=== PATIENT | female | born 1970 | race Two or more races ===

== ENCOUNTER 2017-06-30 10:35 | Emergency (ER) | payer BC, OTHER ==
[~2017-06-30] VITALS: Ht 160 cm; Wt 74.8 kg
--- NOTE | 2017-06-30 11:20 | NUR ---
TO ED DT DIZZINESS AND NAUSEA. APPEARS IN NO APPARENT DISTRESS,. RESPIRATION EVEN AND UNLABORED. SKIN IS WARM TO TOUCH AND NON DIAPHORETIC. PATIENT IS AFEBRILE.VSS
[2017-06-30] MEDS ORDERED: MECLIZINE HCL 12.5 MG TABLET PO ONE (12:30)
[2017-06-30] MEDS ORDERED: ONDANSETRON 4 MG TAB.RAPDIS SL ONE (12:30)
[2017-06-30 12:35] LABS: APPEARANCE,URINE Clear (CLEAR); BILIRUBIN,URINE Negative (NEGATIVE); BLOOD, URINE Negative Ery/uL (NEGATIVE); COLOR,URINE Yellow (YELLOW); KETONES,URINE Negative (NEGATIVE); LEUKOCYTE ESTERASE ,URINE Trace (NEGATIVE); NITRITE, URINE Negative (NEGATIVE); PH,URINE 7.5 (5.0-8.0); PREGNANCY TEST URINE QUAL NEGATIVE (NEGATIVE); PROTEIN,URINE Negative (NEGATIVE); UGLUCOSE Negative (NEGATIVE); UROBILINOGEN,URINE 0.2 EU/dL (0.2)
[2017-06-30 12:36] LABS: BACTERIA,URINE Rare /HPF (None Seen); RBC,URINE 0-2 /HPF (0-2); SQUAMOUS EPITHELIAL CELL,UR Few /HPF (None Seen); WBC,URINE 0-2 /HPF (0-3)
[2017-06-30] MEDS ORDERED: ONDANSETRON 4 MG TAB.RAPDIS ONE (12:39)
[2017-06-30] MEDS ORDERED: MECLIZINE HCL 25 MG TABLET ONE (12:39)
[2017-06-30 13:09] VITALS: BP 113/60
--- NOTE | 2017-06-30 13:09 | NUR ---
Patient discharged to home in stable condition. Written and verbal after care instructions given. Patient verbalizes understanding of instruction.
== END 2017-06-30 13:10 | disposition home or self-care (01) ==
LOC: ER 10:41
DX: R42 Dizziness and giddiness (principal); R11.0 Nausea; M32.9 Systemic lupus erythematosus, unspecified; Z90.89 Acquired absence of other organs
CPT/HCPCS: 81000-TC; 84703-TC; A4606; Z7610

== ENCOUNTER 2018-07-20 18:34 | Emergency (ER) | payer BC ==
[~2018-07-20] VITALS: Ht 160 cm; Wt 81.6 kg
[2018-07-20] MEDS ORDERED: KETOROLAC TROMETHAMINE INJ 30 MG/ML VIAL IM ONE (19:30)
[2018-07-20] MEDS ORDERED: KETOROLAC TROMETHAMINE INJ 30 MG/ML VIAL ONE (19:30)
--- NOTE | 2018-07-20 19:42 | NUR ---
PT PRESENTS TO ER C/O LOWER BACK PAIN WHICH IS CONTINUOUS AND WORSENS WITH MOVEMENT, SINCE THURSDAY. DENIES N/V/D, HEAMTURIA, DYSURIA. SKIN WARM DRY. RESP EVEN UNLABORED. ABLE TO AMBULATE WITH STEADY GAIT, THOUGH IT CAUSES PAIN.
[2018-07-20] MEDS ORDERED: ONDANSETRON 4 MG TAB.RAPDIS SL ONE (20:30)
[2018-07-20] MEDS ORDERED: oxyCODONE/APAP (5/325 MG) 1 UDTAB TABLET PO ONE (20:30)
[2018-07-20] MEDS ORDERED: ONDANSETRON 4 MG TAB.RAPDIS ONE (20:43)
[2018-07-20] MEDS ORDERED: oxyCODONE/APAP (5/325 MG) 1 UDTAB TABLET ONE (20:43)
--- NOTE | 2018-07-20 20:56 | NUR ---
RESTING QUIETLY HOWEVER PAIN PERSISTS. MEDICATED PER ORDER.
--- NOTE | 2018-07-20 21:26 | NUR ---
PT NOW ABLE TO AMBULATE, IN RESTROOM TO PROVIDE URINE SAMPLE
[2018-07-20 21:39] LABS: APPEARANCE,URINE Slightly Cloudy (CLEAR); BILIRUBIN,URINE Negative (NEGATIVE); BLOOD, URINE Trace-lysed Ery/uL (NEGATIVE); COLOR,URINE Yellow (YELLOW); KETONES,URINE Negative (NEGATIVE); LEUKOCYTE ESTERASE ,URINE Negative (NEGATIVE); NITRITE, URINE Negative (NEGATIVE); PROTEIN,URINE Negative (NEGATIVE); UGLUCOSE Negative (NEGATIVE)
--- NOTE | 2018-07-20 21:48 | NUR ---
Patient discharged to home in stable condition after re-eval by COORDINATOR [employer]. Denies any new or worsening sx's at this time. Resp even and unlabored. Written and verbal after care instructions given. Patient verbalizes understanding of instruction. Ambulatory with a steady gait accompanied by family.
[2018-07-20 21:50] VITALS: BP 132/85
[2018-07-20 21:51] LABS: BACTERIA,URINE Moderate /HPF (None Seen); SQUAMOUS EPITHELIAL CELL,UR Moderate /HPF (None Seen)
[2018-07-20 21:52] LABS: RBC,URINE 0-2 /HPF (0-2); URINE AMORPHOUS URATE Moderate /HPF (None Seen); WBC,URINE 0-2 /HPF (0-3)
== END 2018-07-20 21:51 | disposition home or self-care (01) ==
LOC: ER 18:37
DX: S39.012A Strain of muscle, fascia and tendon of lower back, initial encounter (principal); M32.9 Systemic lupus erythematosus, unspecified; Z90.49 Acquired absence of other specified parts of digestive tract; X58.XXXA Exposure to other specified factors, initial encounter; Y93.89 Activity, other specified; Y92.89 Other specified places as the place of occurrence of the external cause; Y99.8 Other external cause status
CPT/HCPCS: 72100-TC; 81000-TC; 87086-TC; A4606; J1885; Q0162; Z7610

== ENCOUNTER 2019-10-07 00:08 | Emergency (ER) | payer BC ==
[~2019-10-07] VITALS: Ht 160 cm; Wt 61.2 kg
--- NOTE | 2019-10-07 00:25 | NUR ---
PT PRESENTED TO THE ER WITH A C/O ABD PAIN WITH N/V SINCE 1500 YESTERDAY. PT IS HOLDING HER STOMACH AND GROANING. PT WAS PLACED ON THE MONITOR AND CONTINUOUS PULSE OX.
[2019-10-07] MEDS ORDERED: MORPHINE SULFATE INJ 2 MG/ML DISP.SYRIN IV ONE (00:30)
[2019-10-07] MEDS ORDERED: ONDANSETRON HCL/PF 4 MG/2 ML VIAL IVP ONE (00:30)
[2019-10-07] MEDS ORDERED: IV NS 0.9% 1,000 ML BAG IV ONE (00:30)
--- NOTE | 2019-10-07 00:35 | NUR ---
IV STARTED AND BLOOD WAS DRAWN. LOUIE, CHANGEOVER OPERATOR IS AT THE BEDSIDE FOR DRAW.
[2019-10-07 00:40] LABS: APPEARANCE,URINE Clear (CLEAR); BILIRUBIN,URINE Negative (NEGATIVE); BLOOD, URINE Small Ery/uL (NEGATIVE); COLOR,URINE Yellow (YELLOW); KETONES,URINE 40 (NEGATIVE); LEUKOCYTE ESTERASE ,URINE Negative (NEGATIVE); NITRITE, URINE Negative (NEGATIVE); PH,URINE 5.5 (5.0-8.0); PROTEIN,URINE Negative (NEGATIVE); UGLUCOSE Negative (NEGATIVE); UROBILINOGEN,URINE 0.2 EU/dL (0.2)
[2019-10-07 00:41] LABS: BASOPHILS # (AUTO) 0.1 /CMM (0.0-0.2); BASOPHILS % (AUTO) 0.8 % (0.0-2.0); EOSINOPHILS % (AUTO) 0.8 % (0.0-6.0); HEMATOCRIT 36 % (33-45); HEMOGLOBIN 12.7 g/dL (11.5-14.8); LYMPHOCYTES # (AUTO) 1.6 /CMM (0.8-4.8); LYMPHOCYTES % (AUTO) 19.3 % (20.0-44.0); MEAN CORPUSCULAR HGB CONC 35 g/dl (31.0-36.0); MEAN CORPUSCULAR VOLUME 84 fL (82-100); MONOCYTES # (AUTO) 0.4 /CMM (0.1-1.30); MONOCYTES % (AUTO) 4.5 % (2.0-12.0); NEUTROPHILS % (AUTO) 74.6 % (43.0-81.0); PLATELET COUNT (AUTO) 233 /CMM (150-450); RED BLOOD CELL COUNT(AUTO) 4.34 MIL/uL (4.0-5.2); WHITE BLOOD COUNT (AUTO) 8.1 K/uL (4.3-11.0)
[2019-10-07] MEDS ORDERED: ONDANSETRON HCL/PF 4 MG/2 ML VIAL ONE (00:42)
[2019-10-07] MEDS ORDERED: MORPHINE SULFATE INJ 4 MG/ML DISP.SYRIN ONE (00:43)
[2019-10-07 00:54] LABS: CALCIUM, SERUM 8.9 mg/dL (8.5-10.1); CARBON DIOXIDE 21 mmol/L (21-32); CHLORIDE 100 mmol/L (98-107); CREATININE 0.6 mg/dL (0.6-1.3); GLUCOSE 130 mg/dL (74-106); POTASSIUM 3.8 mmol/L (3.5-5.1); SODIUM SERUM 134 mmol/L (136-145); UREA NITROGEN, BLOOD 10 mg/dL (7-18)
--- NOTE | 2019-10-07 00:55 | NUR ---
PT BROUGHT TO CT
[2019-10-07 01:00] LABS: ALANINE AMINOTRANSFERASE 38 U/L (12-78); ALBUMIN 3.6 g/dL (3.4-5.0); ALKALINE PHOSPHATASE 64 U/L (46-116); ASPARTATE AMINOTRANSFERASE 24 U/L (15-37); BILIRUBIN,DIRECT 0.1 mg/dL (0.0-0.2); BILIRUBIN,TOTAL 0.6 mg/dL (0.2-1.0); LIPASE 102 U/L (73-393); TOTAL PROTEIN, SERUM 7.2 g/dL (6.4-8.2)
--- NOTE | 2019-10-07 01:02 | NUR ---
PT RETURNED FROM CT.
[2019-10-07 01:19] LABS: BACTERIA,URINE None seen /HPF (None Seen); MUCUS,URINE Few /LPF (None Seen); SQUAMOUS EPITHELIAL CELL,UR Few /HPF (None Seen); WBC,URINE 0-2 /HPF (0-3)
--- NOTE | 2019-10-07 01:19 | NUR ---
PT APPEARS TO BE RESTING COMFORTABLY. PT STATED THAT SHE HAS EPIGASTRIC PAIN 4/10. PT HAD A CHOLECYSTECTOMY IN THE PAST AND HAS BEEN DX WITH GERD. PT CONTROLS THE GERD WITH HER DIET.
[2019-10-07] MEDS ORDERED: FAMOTIDINE/PF INJ 20 MG/2 ML VIAL IV ONE ×2 (01:25→01:30)
[2019-10-07] MEDS ORDERED: MAG HYDROX/AL HYDROX/SIMETH 30 ML UDC ONE (01:25)
[2019-10-07] MEDS ORDERED: LIDOCAINE VISCOUS 2% UD 15 ML UDC ONE (01:25)
[2019-10-07] MEDS ORDERED: MAG HYDROX/AL HYDROX/SIMETH 30 ML UDC PO ONE (01:30)
[2019-10-07] MEDS ORDERED: LIDOCAINE VISCOUS 2% UD 15 ML UDC MM ONE (01:30)
--- NOTE | 2019-10-07 02:20 | NUR ---
PT IS C/O 10/10 ABD PAIN THAT RADIATES TO THE NECK. PT IS ALSO C/O BACK PAIN. PT IS ON THE MONITOR AND CONTINUOUS PULSE OX. NOTIFIED.
[2019-10-07] MEDS ORDERED: DICYCLOMINE HCL INJ 20 MG/2 ML AMPUL IM ONE ×2 (02:25→02:30)
--- NOTE | 2019-10-07 02:26 | NUR ---
PT REC'D MEDICATION ORDERED.
--- NOTE | 2019-10-07 02:48 | NUR ---
PT STATED THAT HER PAIN IS STILL THERE AND IT''S 06/01 NOW.
--- NOTE | 2019-10-07 03:01 | NUR ---
PT DOES NOT WANT HE BLOOD PRESSURE TAKEN BECAUSE SHE HAS LUPUS AND WHEN THE CUFF INFLATES, IT HURTS HER ARM.
--- NOTE | 2019-10-07 03:04 | NUR ---
PT APPEARS TO BE SLEEPING COMFORTABLY WITH NO S/S OF PAIN OR DISTRESS.
--- NOTE | 2019-10-07 03:15 | NUR ---
IV removed. Catheter intact and site benign. Pressure and 4x4 applied to site. No bleeding noted.
--- NOTE | 2019-10-07 03:26 | NUR ---
Patient discharged to home in stable condition. Written and verbal after care instructions given. Patient verbalizes understanding of instruction. PT TO TAKE AN UBER HOME. VSS. PT STATED THAT HER PAIN IS STILL THERE A LITTLE BIT, BUT IS MUCH BETTER. PT AMBULATED OUT WITH A STEADY GAIT.
[2019-10-07 03:27] VITALS: BP 142/68
== END 2019-10-07 03:28 | disposition home or self-care (01) ==
LOC: ER 00:08
DX: R10.12 Left upper quadrant pain (principal); R10.11 Right upper quadrant pain; R19.7 Diarrhea, unspecified; Z90.49 Acquired absence of other specified parts of digestive tract
CPT/HCPCS: 36415; 71045; 74176; 80048; 80076; 81001; 83690; 84484; 85025; 85730; 93005; 96361; 96372; 96374; 96375; 99284; J0500; J2270; J2405; J3490; J7030; 81000-TC

== ENCOUNTER 2021-03-03 18:08 | Emergency (ER) | payer BC ==
[~2021-03-03] VITALS: Ht 160 cm; Wt 71.7 kg
[2021-03-03 18:30] VITALS: BP 145/74
[2021-03-03] MEDS ORDERED: OXYC-128 PO (18:39)
[2021-03-03] MEDS ORDERED: PENI500T PO (18:39)
== END 2021-03-03 18:47 | disposition home or self-care (01) ==
LOC: ER 18:12
DX: K08.89 Other specified disorders of teeth and supporting structures (principal); K04.7 Periapical abscess without sinus; M32.9 Systemic lupus erythematosus, unspecified; Z90.49 Acquired absence of other specified parts of digestive tract; Z79.899 Other long term (current) drug therapy

== ENCOUNTER 2023-09-21 22:13 | Emergency (ER) | payer BC ==
[~2023-09-21] VITALS: Ht 160 cm; Wt 63.5 kg
[~2023-09-21 22:13] MED LIST: OXYC-128 PO; PENI500T PO
[2023-09-21 22:54] VITALS: BP 116/79; TEMP 98.6; O2SAT 97
[2023-09-22] MEDS ORDERED: IV NS 0.9% 1,000 ML IV ONE
[2023-09-22] MEDS ORDERED: MORPHINE SULFATE INJ 2 MG/ML DISP.SYRIN IV ONE
[2023-09-22] MEDS ORDERED: ONDANSETRON HCL/PF 4 MG/2 ML VIAL IVP ONE
[2023-09-22] MEDS ORDERED: ONDANSETRON HCL/PF 4 MG/2 ML VIAL ONE (00:08)
[2023-09-22] MEDS ORDERED: MORPHINE SULFATE INJ 2 MG/ML DISP.SYRIN ONE (00:09)
[2023-09-22] MEDS ORDERED: IV NS 0.9% 1,000 ML BAG IV ONE (00:30)
[2023-09-22 00:42] LABS: BASOPHILS # (AUTO) 0.1 K/uL (0.0-0.2); EOSINOPHILS # (AUTO) 0.1 K/uL (0.0-0.7); EOSINOPHILS % (AUTO) 1.9 % (0.0-6.0); HEMATOCRIT 37 % (33-45); HEMOGLOBIN 12.3 g/dL (11.5-14.8); LYMPHOCYTES # (AUTO) 1.8 K/uL (0.8-4.8); LYMPHOCYTES % (AUTO) 32.2 % (20.0-44.0); MEAN CORPUSCULAR HEMOGLOBIN 28 PG (26.0-33.0); MEAN CORPUSCULAR HGB CONC 33 g/dl (31.0-36.0); MEAN CORPUSCULAR VOLUME 86 fL (82-100); MONOCYTES # (AUTO) 0.3 K/uL (0.1-1.30); NEUTROPHILS # (AUTO) 3.4 K/uL (1.8-8.9); NEUTROPHILS % (AUTO) 59.9 % (43.0-81.0); PLATELET COUNT (AUTO) 248 K/uL (150-450); RED BLOOD CELL COUNT(AUTO) 4.33 MIL/uL (4.0-5.2); RED CELL DISTRIBUTION WIDTH 14.2 % (11.5-15.0); WHITE BLOOD COUNT (AUTO) 5.7 K/uL (4.3-11.0)
[2023-09-22 01:44] LABS: ALBUMIN 4.1 g/dL (3.4-5.0); BILIRUBIN,DIRECT 0.1 mg/dL (0.0-0.2); BILIRUBIN,TOTAL 0.5 mg/dL (0.2-1.0); CALCIUM, SERUM 9.3 mg/dL (8.5-10.1); CREATININE 0.6 mg/dL (0.6-1.3); POTASSIUM 3.9 mmol/L (3.5-5.1); TOTAL PROTEIN, SERUM 7.8 g/dL (6.4-8.2)
[2023-09-22 02:38] LABS: EOSINOPHILS % (MANUAL) 4 % (0-4); LYMPHOCYTES % (MANUAL) 38 % (16-48); MONOCYTES % (MANUAL) 5 % (0-11.0); NEUTROPHILS % (MANUAL) 53 (42-76); PLATELET ESTIMATE ADEQUATE
[2023-09-22] MEDS ORDERED: PIPERACI/TAZO 3.375GM/D5W 50ML PB IV ONE (03:15)
[2023-09-22] MEDS ORDERED: PIPERACILLIN /TAZOBACTAM 3.375 G in IV D5W 50 ML IV ONE (03:30)
== END 2023-09-22 07:47 | disposition short-term general hospital (02) ==
LOC: ER 22:16
DX: K35.80 Unspecified acute appendicitis (principal); R10.31 Right lower quadrant pain; Z90.49 Acquired absence of other specified parts of digestive tract
CPT/HCPCS: 99285; 74177; 36415; 96365; 96375; 96361; 85025; 80048; 83690; 80076; 85007; J7050; Q9967; J2405; J2543 ×2; J7060; J7030 ×2; J2270

== ENCOUNTER 2024-07-28 10:38 | Emergency (ER) | payer BC ==
[~2024-07-28] VITALS: Ht 160 cm; Wt 62.1 kg
[2024-07-28] MEDS ORDERED: METOCLOPRAMIDE HCL 10 MG/2 ML VIAL ONE (11:22)
[2024-07-28] MEDS ORDERED: ACETAMINOPHEN 325 MG TABLET ONE (11:22)
[2024-07-28] MEDS ORDERED: diphenhydrAMINE HCL 50 MG/ML VIAL ONE (11:22)
[2024-07-28 11:51] LABS: BASOPHILS % (AUTO) 0.5 % (0.0-2.0); EOSINOPHILS # (AUTO) 0.1 K/uL (0.0-0.7); EOSINOPHILS % (AUTO) 2.2 % (0.0-6.0); HEMATOCRIT 34 % (33-45); HEMOGLOBIN 11.3 g/dL (11.5-14.8); LYMPHOCYTES # (AUTO) 1.4 K/uL (0.8-4.8); LYMPHOCYTES % (AUTO) 33.2 % (20.0-44.0); MEAN CORPUSCULAR HEMOGLOBIN 29 PG (26.0-33.0); MEAN CORPUSCULAR HGB CONC 33 g/dl (31.0-36.0); MEAN CORPUSCULAR VOLUME 87 fL (82-100); MONOCYTES # (AUTO) 0.3 K/uL (0.1-1.30); MONOCYTES % (AUTO) 6.4 % (2.0-12.0); NEUTROPHILS # (AUTO) 2.4 K/uL (1.8-8.9); NEUTROPHILS % (AUTO) 57.7 % (43.0-81.0); PLATELET COUNT (AUTO) 208 K/uL (150-450); RED BLOOD CELL COUNT(AUTO) 3.91 MIL/uL (4.0-5.2); RED CELL DISTRIBUTION WIDTH 13.6 % (11.5-15.0); WHITE BLOOD COUNT (AUTO) 4.2 K/uL (4.3-11.0)
[2024-07-28] MEDS: IV NS 0.9% 1,000 ML BAG IV ONE (11:52)
[2024-07-28] MEDS: ACETAMINOPHEN 325 MG TABLET PO ONE (11:53)
[2024-07-28] MEDS: METOCLOPRAMIDE HCL 10 MG/2 ML VIAL IV ONE (11:54)
[2024-07-28] MEDS: diphenhydrAMINE HCL 50 MG/ML VIAL IV ONE (11:54)
[2024-07-28 12:13] LABS: ALANINE AMINOTRANSFERASE 14 U/L (12-78); ALBUMIN 3.5 g/dL (3.4-5.0); ALKALINE PHOSPHATASE 53 U/L (46-116); ASPARTATE AMINOTRANSFERASE 8 U/L (15-37); BILIRUBIN,DIRECT 0.1 mg/dL (0.0-0.2); BILIRUBIN,TOTAL 0.6 mg/dL (0.2-1.0); CARBON DIOXIDE 27 mmol/L (21-32); CHLORIDE 105 mmol/L (98-107); CREATININE 0.7 mg/dL (0.6-1.3); GLUCOSE 83 mg/dL (74-106); SODIUM SERUM 138 mmol/L (136-145); TOTAL PROTEIN, SERUM 6.8 g/dL (6.4-8.2); UREA NITROGEN, BLOOD 15 mg/dL (7-18)
[2024-07-28 15:29] VITALS: BP 106/50; TEMP 98.2; O2SAT 99
== END 2024-07-28 15:31 | disposition home or self-care (01) ==
LOC: ER 10:42
DX: R51.9 Headache, unspecified (principal); R42 Dizziness and giddiness; R11.0 Nausea; J02.9 Acute pharyngitis, unspecified; E78.5 Hyperlipidemia, unspecified; M79.7 Fibromyalgia; Z90.49 Acquired absence of other specified parts of digestive tract; Z20.822 Contact with and (suspected) exposure to COVID-19
CPT/HCPCS: 99285; 96374; 70450; 96361; 96375; 87426; 93005; 87804 ×2; 85025; 80048; 80076; 36415; 84484; J1200; J2765; J7030

== ENCOUNTER 2024-09-06 07:19 | Emergency (ER) | payer BC, MEDICAID ==
[~2024-09-06] VITALS: Ht 160 cm; Wt 61.2 kg
[2024-09-06] MEDS ORDERED: CEPH-570 PO (07:55)
[2024-09-06] MEDS ORDERED: FLUC150T PO (07:55)
[2024-09-06 08:21] LABS: BILIRUBIN,URINE 1+ (NEGATIVE); BLOOD, URINE 3+ Ery/uL (NEGATIVE); COLOR,URINE YELLOW (YELLOW); KETONES,URINE NEGATIVE (NEGATIVE); LEUKOCYTE ESTERASE ,URINE 2+ (NEGATIVE); NITRITE, URINE NEGATIVE (NEGATIVE); PH,URINE 5.5 (5.0-8.0); PROTEIN,URINE 2+ mg/dl (NEGATIVE); UGLUCOSE NEGATIVE (NEGATIVE); UROBILINOGEN,URINE 0.2 EU/dL (0.2)
[2024-09-06 08:22] LABS: APPEARANCE,URINE CLOUDY (CLEAR)
[2024-09-06 08:32] VITALS: BP 116/80; TEMP 98.3; O2SAT 100
[2024-09-06 08:33] LABS: ADD URINE CULTURE YES; BACTERIA,URINE Few /HPF (None Seen); RBC,URINE 51-80 /HPF (0-2); WBC,URINE 21-50 /HPF (0-3)
== END 2024-09-06 08:37 | disposition home or self-care (01) ==
LOC: ER 07:23
DX: N39.0 Urinary tract infection, site not specified (principal); Z90.49 Acquired absence of other specified parts of digestive tract; Z98.890 Other specified postprocedural states
CPT/HCPCS: 81001; 87086-TC

== ENCOUNTER 2025-03-03 01:48 | Emergency (ER) | payer BC ==
[~2025-03-03] VITALS: Ht 160 cm; Wt 63.0 kg
[~2025-03-03 01:48] MED LIST changes: +CEPH-570 PO; +FLUC150T PO
[2025-03-03] MEDS ORDERED: IBUPROFEN 400 MG TABLET ONE (02:48)
[2025-03-03 02:51] LABS: APPEARANCE,URINE TURBID (CLEAR); BILIRUBIN,URINE NEGATIVE (NEGATIVE); BLOOD, URINE 2+ Ery/uL (NEGATIVE); COLOR,URINE DARK YELLOW (YELLOW); KETONES,URINE NEGATIVE (NEGATIVE); LEUKOCYTE ESTERASE ,URINE 3+ (NEGATIVE); NITRITE, URINE POSITIVE (NEGATIVE); PREGNANCY TEST URINE QUAL NEGATIVE (NEGATIVE); PROTEIN,URINE 2+ mg/dl (NEGATIVE); UGLUCOSE NEGATIVE (NEGATIVE)
[2025-03-03 02:52] LABS: ADD URINE CULTURE YES; BACTERIA,URINE Moderate /HPF (None Seen); SQUAMOUS EPITHELIAL CELL,UR Rare /HPF (None Seen); WBC,URINE 51-80 /HPF (0-3)
[2025-03-03] MEDS ORDERED: NITR100C6 PO (03:04)
[2025-03-03] MEDS ORDERED: FLUC150T PO (03:04)
[2025-03-03] MEDS ORDERED: NITROFURANTOIN/MONOHYDRATE MACROCRYSTALS 100 MG CAPSULE ONE (03:08)
[2025-03-03] MEDS: IBUPROFEN 400 MG TABLET PO ONE (03:08)
[2025-03-03] MEDS: NITROFURANTOIN/MONOHYDRATE MACROCRYSTALS 100 MG CAPSULE PO ONE (03:09)
[2025-03-03 03:20] VITALS: BP 116/67; TEMP 98.2; O2SAT 99
== END 2025-03-03 03:21 | disposition home or self-care (01) ==
LOC: ER 01:53
DX: N39.0 Urinary tract infection, site not specified (principal); M79.7 Fibromyalgia; Z90.49 Acquired absence of other specified parts of digestive tract
CPT/HCPCS: 81001; 84703-TC; 87086-TC; 87186-TC